=== PATIENT | female | born 1970 | race Two or more races ===

== ENCOUNTER 2021-03-16 07:29 | Outpatient (REF) | payer OTHER, SELFPAY ==
--- NOTE | ~2021-03-16 | MM_ITS ---
EXAMINATION: MM SCREENING DIGITAL BREAST TOMOSYNTHESIS, BILATERAL CLINICAL INFORMATION: Screening. Asymptomatic. The lifetime risk of breast cancer based on the Tyrer-Cuzick Model is 4%. COMPARISON: Mammography: 10/30/2017, 06/08/2015 TECHNIQUE: Digital breast tomosynthesis is performed in both the craniocaudal and mediolateral oblique views along with computer-aided detection (CAD). Synthesized 2D images are generated from the tomosynthesis. FINDINGS: There are scattered areas of fibroglandular density (ACR BI-RADS breast composition Category b). There are no significant masses, abnormal calcifications, or other abnormalities. Parenchymal pattern is similar to prior studies. No significant changes. MM/MM tomosynthesis screening BI IMPRESSION: No mammographic evidence of malignancy. ASSESSMENT: BI-RADS 1: Negative RECOMMENDATION: Routine annual mammography screening. This patient's information was entered into a reminder system with a target due date for their next mammogram.
== END 2021-03-16 07:30 | disposition home or self-care (01) ==
LOC: HO.MAMMO 07:29
PROVIDERS: PCP Nurse Practitioner Family; Visit Provider Nurse Practitioner Family
DX: Z12.31 Encounter for screening mammogram for malignant neoplasm of breast (principal)
CPT/HCPCS: 77063; 77067

== ENCOUNTER 2022-02-14 14:16 | Outpatient (REF) | payer OTHER, SELFPAY ==
--- NOTE | ~2022-02-14 | MR_ITS ---
EXAMINATION: MR BRAIN WITHOUT AND WITH CONTRAST CLINICAL INFORMATION: 51-year-old with chronic daily headaches. COMPARISON: None. TECHNIQUE: Multiplanar, multisequence MRI of the brain was obtained before and after the intravenous administration of 10 mL Gadavist. FINDINGS: BRAIN VOLUME: Grossly unremarkable within the limitations of a qualitative assessment. STRUCTURAL: Partially empty sella. BRAIN AND MENINGES: DWI sequence demonstrates no restricted diffusion to suggest acute or subacute cerebral ischemia. Scattered subcentimeter foci of FLAIR/T2 signal hyperintensity are seen within the white matter of both cerebral hemispheres, right more than left without abnormal enhancement, which are nonspecific findings. The remainder of the brain is normal in morphology and signal intensity. Gradient refocused imaging demonstrates no evidence for hemorrhage, hemosiderin staining or abnormal mineral deposition. No extra-axial fluid collections, mass lesions, space-occupying process or mass effect are identified. No pathologic enhancement. VENTRICLES AND SUBARACHNOID SPACES: The ventricular system and subarachnoid spaces are within normal limits without hydrocephalus. Incidental cavum septum pellucidum noted. ORBITAL STRUCTURES: The visualized orbital structures are grossly unremarkable within the limitations of the study. VASCULAR: Signal voids are noted in the visualized major intracranial vessels. OSSEOUS STRUCTURES, SINUSES/MASTOIDS, EXTRACRANIAL SOFT TISSUES: Unremarkable MR/MR head/brain wo/w con IMPRESSION: 1. Scattered tiny nonenhancing white matter T2 hyperintensities in the cerebral hemispheres, right more than left are nonspecific findings. Differential diagnostic considerations include, but are not limited to, migraine associated vasculopathy and chronic ischemic microangiopathy. 2. No acute intracranial process, space-occupying process, mass effect, hemorrhage or hydrocephalus.
== END 2022-02-14 14:17 | disposition home or self-care (01) ==
LOC: HO.MRI 14:16
PROVIDERS: Visit Provider Psychiatry & Neurology Neurology
DX: R51.9 Headache, unspecified (principal)
CPT/HCPCS: 70553; A9585

== ENCOUNTER 2022-02-26 09:10 | Outpatient (REF) | payer OTHER, SELFPAY ==
[2022-02-26 10:23] LABS: Anion Gap 13 (12-20); Blood Urea Nitrogen 9 mg/dL (9-16); Calcium 9.5 mg/dL (8.4-10.2); Carbon Dioxide 24 mmol/L (22-29); Chloride 104 mmol/L (96-108); Estimated Glomerular Filt Rate > 60; Glucose Random 167 mg/dL (60-115); Potassium 4.1 mmol/L (3.3-5.1); Sodium 137 mmol/L (135-145)
[2022-02-26 10:32] LABS: Erythrocyte Sedimentation Rate 21 MM/HR (0-20)
[2022-02-26 10:54] LABS: Syphilis Screen Nonreactive (Nonreactive)
[2022-02-28 09:27] LABS: Lyme Abs Screen <0.90 index
[2022-02-28 17:27] LABS: IgA 158 mg/dL (47-310); IgG 1234 mg/dL (600-1640); IgM 93 mg/dL (50-300)
[2022-02-28 17:42] LABS: Anti DNA DS Antibody 1 IU/mL
[2022-02-28 18:56] LABS: Anti Nuclear Antibody Screen NEGATIVE (NEGATIVE)
== END 2022-02-26 09:11 | disposition home or self-care (01) ==
LOC: HO.LAB 09:10
PROVIDERS: PCP Nurse Practitioner Family; Visit Provider Psychiatry & Neurology Neurology
DX: G43.909 Migraine, unspecified, not intractable, without status migrainosus (principal); G93.49 Other encephalopathy
CPT/HCPCS: 36415; 80048; 82784; 85652; 86038; 86039; 86225; 86334; 86617; 86618; 86780

== ENCOUNTER 2022-12-10 14:39 | Outpatient (REF) | payer OTHER, SELFPAY ==
--- NOTE | ~2022-12-10 | MM_ITS ---
EXAMINATION: MM SCREENING DIGITAL BREAST TOMOSYNTHESIS, BILATERAL CLINICAL INFORMATION: Screening. Asymptomatic. The lifetime risk of breast cancer based on the Tyrer-Cuzick Model is 8%. COMPARISON: Mammography: 03/16/2021, 10/30/2017 TECHNIQUE: Digital breast tomosynthesis is performed in both the craniocaudal and mediolateral oblique views along with computer-aided detection (CAD). Synthesized 2D images are generated from the tomosynthesis. FINDINGS: There are scattered areas of fibroglandular density (ACR BI-RADS breast composition Category b). There are no significant masses, abnormal calcifications, or other abnormalities. Parenchymal pattern is similar to prior studies. There is no developing density or architectural abnormality. The axilla and skin contours are unremarkable. No significant changes. MM/MM tomosynthesis screening BI IMPRESSION: No mammographic evidence of malignancy. ASSESSMENT: BI-RADS 1: Negative RECOMMENDATION: Routine annual mammography screening. This patient's information was entered into a reminder system with a target due date for their next mammogram.
== END 2022-12-10 14:40 | disposition home or self-care (01) ==
LOC: HO.MAMMO 14:39
PROVIDERS: Visit Provider Nurse Practitioner Adult Health
DX: Z12.31 Encounter for screening mammogram for malignant neoplasm of breast (principal)
CPT/HCPCS: 77063; 77067

== ENCOUNTER 2023-03-27 07:31 | Outpatient (REF) | payer BC, SELFPAY ==
--- NOTE | ~2023-03-27 | MR_ITS ---
EXAMINATION: MRI OF THE BRAIN WITHOUT CONTRAST CLINICAL INFORMATION: Demyelinating changes in the brain. COMPARISON: MRI scan of the brain 02/14/2022. TECHNIQUE: MRI of the brain was obtained using routine sequences without contrast. FINDINGS: The study redemonstrates a few scattered foci of hyperintense T2 and FLAIR signal in the periventricular subcortical white matter which are nonspecific. They may be consistent with sequelae of mild chronic microvascular ischemic change, vasculitis common migraine or demyelination the correct clinical setting. None of the foci demonstrate restricted diffusion. The corpus callosum has good volume. No diffusion abnormalities are identified to suggest an acute or subacute infarct. No mass effect or midline shift is seen. The ventricles and sulci are normal in size. No extra-axial fluid collections are seen. The brainstem and cerebellum are normal. No pathologic magnetic susceptibility artifact is identified on the gradient refocused acquisition. The craniovertebral junction, marrow signal, and midline structures are normal. The major intracranial the mastoid air cells are well-aerated. There is mild mucosal mucoperiosteal in the inferior right maxillary sinus and bilateral ethmoid sinuses. MR/MR head/brain wo con IMPRESSION: 1. There are no acute bleeds or infarcts. No masses are demonstrated. 2. The study redemonstrates multiple small foci of hyperintense T2 and FLAIR signal which appear relatively stable as described above.
== END 2023-03-27 07:32 | disposition home or self-care (01) ==
LOC: HO.MRI 07:31
PROVIDERS: PCP Nurse Practitioner Family; Visit Provider Psychiatry & Neurology Neurology
DX: G37.9 Demyelinating disease of central nervous system, unspecified (principal)
CPT/HCPCS: 70551

== ENCOUNTER 2024-05-08 07:16 | Outpatient (REF) | payer BC, SELFPAY ==
--- NOTE | ~2024-05-08 | MM_ITS ---
EXAMINATION: MM SCREENING DIGITAL BREAST TOMOSYNTHESIS, BILATERAL CLINICAL INFORMATION: Screening. Asymptomatic. COMPARISON: Mammography: Comparison is made with available priors TECHNIQUE: Digital breast mammography with tomosynthesis is performed in both the craniocaudal and mediolateral oblique views along with computer-aided detection (CAD). FINDINGS: There are scattered areas of fibroglandular density (ACR BI-RADS breast composition Category b). There are no significant masses, abnormal calcifications, or other abnormalities. MM/MM tomosynthesis screening BI IMPRESSION: No mammographic evidence of malignancy. ASSESSMENT: BI-RADS BI-RADS 1 - Negative RECOMMENDATION: Routine annual mammography screening. 1 year F/U This examination should not preclude the clinical evaluation of a suspicious palpable abnormality. This patient's information was entered into a reminder system with a target due date for their next mammogram. Electronically signed by: Nohemi Brothers DO 05/19/2024 05:52 PM EDT
== END 2024-05-08 07:17 | disposition home or self-care (01) ==
LOC: HO.MAMMO 07:16
PROVIDERS: PCP Nurse Practitioner Family; Visit Provider Nurse Practitioner Family
DX: Z12.31 Encounter for screening mammogram for malignant neoplasm of breast (principal)
CPT/HCPCS: 77063; 77067

== ENCOUNTER → 2024-05-08 07:30 | Outpatient (BNV) | payer BC, SELFPAY | PROVIDERS: PCP Nurse Practitioner Family; Visit Provider Internal Medicine | DX: Z12.31 Encounter for screening mammogram for malignant neoplasm of breast (principal) | CPT/HCPCS: 77063; 77067 ==

== ENCOUNTER 2025-02-03 07:53 | Outpatient (AMB) | payer BC, SELFPAY ==
--- OUTSIDE RECORDS SUMMARY | 2025-02-03 07:59 | XMS_ITS | Patient Health Record ---
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
--- NOTE | 2025-02-03 08:02 | A.OFFVIS_ITS ---
Vital Signs 02/03/25 08:14 Height 5 ft 4.96 in Weight 210 lb BMI 35.0 BP 112/58 L Blood Pressure Location Rt brachial Position Sitting Pulse 92 Pulse Source Pulse Oximeter Pulse Oximetry (%) 96 Oxygen Delivery Method Room Air Intake Visit Reasons: GERD r/s from 10/26 from us Intake Note: NEW PATIENT for initial eval of GERD. Chronic cond. Taking pantoprazole. Chief Complaint; C.O. GERD persistence + exacerbation, N+V, dysphagia. Pt reports that she has been taking pantoprazole 20 mg which was previously effective but has not been as effective lately. Pt also comments that she sometimes will take 40 mg of the PPI without any noticeable difference. Weight Reducing Technician Required: No Accompanied by: Self / Same As Patient Allergies No Known Allergies (No Known Allergies*) Allergy (Unverified 02/03/25 08:02) HPI HPI GERD r/s from 10/26 from us: Details: 54-year-old female with past medical history of diabetes, hypothyroidism, Graves disease, hypertension, dyslipidemia, asthma, arthritis, chronic GERD, hiatal hernia, fibromyalgia is here today for initial consultation. Patient reports acid reflux for allowing time last endoscopy was in 2015. Patient has been prescribed pantoprazole 20 mg, however she reports that 20 mg has not been helpful. Patient has been taking 40 mg and reports that sometimes she still will have acid reflux. Reports that the food feels like it gets kind of stuck in the middle of her esophagus where she needs to regurgitate some of the food sometimes. Patient reports sometimes getting up in the morning feeling nauseous burning sensation in her stomach. Burning sensation with or without food. Feeling fullness. Patient was on Ozempic and that was stopped and she is currently on Mounjaro. When on Ozempic symptoms were worse. Patient reports that she gets bloated after meals. Sometimes no matter what she eats. Patient reports that she is having trouble emptying her bowels. However she reports that when she is taking magnesium at bedtime she will empty her bowels better. Patient denies melena, hematochezia, unintentional weight loss or ribbon like stools. Last colonoscopy 2 years ago when she turned 52 years old. Family history of CRC. Her father was diagnosed with colon cancer and patient had tubular adenoma on her last colonoscopy. This was done at [facility]. Will get report [facility] Medical History Vitamin D deficiency Type 2 diabetes mellitus Morbid obesity Palpitations Hypothyroid HTN (hypertension) Hiatal hernia Graves disease Fibromyalgia Dyslipidemia Chronic GERD Asthma Arthritis Review of Systems Const Denies weight gain and Denies weight loss ENT Reports no additional complaints, Reports dysphagia and Denies odynophagia Card Reports no additional complaints Resp Reports no additional complaints GI Reports abdominal pain (Epigastric), Denies belching, Denies melena, Reports bloating, Denies change in bowel habits, Reports dysphagia, Denies excessive flatus, Reports dyspepsia, Reports heartburn, Denies diarrhea, Denies loose stools, Reports nausea, Denies odynophagia and Denies vomiting Reports no additional complaints Musc Reports no additional complaints Neuro Reports no additional complaints Psych Reports no additional complaints Endo Reports no additional complaints Physical Exam Vital Signs: Last Vital Signs Pulse 92 02/03/25 08:14 BP 112/58 L 02/03/25 08:14 Pulse Ox 96 02/03/25 08:14 Oxygen Delivery Method Room Air 02/03/25 08:14 BMI result Body Mass Index 35.0 Const General: healthy appearing, no acute distress and well developed Nutritional Appearance: well nourished and overweight Orientation/consciousness: patient oriented x3 Resp Effort & Inspection: normal respiratory effort, able to speak in complete sentences, no tracheal deviation and symmetric chest movement Auscultation: clear to auscultation bilaterally Cardio Jugular venous distension: no JVD Rate: regular rate Heart sounds: S1 normal heart sound present, S2 normal heart sound present, no gallops and no murmurs GI Inspection: Yes normal to inspection, No distended and Yes obesity Palpation (GI): Soft to palpation, not firm, nontender and No hepatosplenomegaly present Auscultation: normal bowel sounds General: Yes no CVA tenderness Back/Spine/Pelvis Back: no CVA tenderness Skin General skin exam: elasticity normal, turgor normal and dry skin Neuro General: patient oriented x3 Psych Appearance: grossly normal Mental Status: mental status grossly normal Assessment & Plan Assessment & Plan (1) GERD (gastroesophageal reflux disease): Code(s): K21.9 - Gastro-esophageal reflux disease without esophagitis Qualifiers: Esophagitis presence: esophagitis presence not specified Qualified Code(s): K21.9 - Gastro-esophageal reflux disease without esophagitis (2) Dysphagia: Code(s): R13.10 - Dysphagia, unspecified Qualifiers: Dysphagia type: pharyngoesophageal phase Qualified Code(s): R13.14 - Dysphagia, pharyngoesophageal phase (3) Nausea & vomiting: Code(s): R11.2 - Nausea with vomiting, unspecified Qualifiers: Vomiting type: unspecified Qualified Code(s): R11.2 - Nausea with vomiting, unspecified (4) Postprandial abdominal bloating: Code(s): R14.0 - Abdominal distension (gaseous) Plan Will start patient on esomeprazole in the morning and famotidine at bedtime. Will send for upper GI with barium swallow. Patient reports dysphagia, rule out achalasia, Schatzki ring, esophageal stricture. Patient reports epigastric pain will rule out H pylori. Patient reports occasional constipation will continue to take magnesium every evening if it helps. Increase fluid intake and activity to promote better bowel motility. Return in 4 months, sooner on as needed basis. Patient is agreeable to this plan and verbalizes understanding of instructions. She was given the opportunity to ask questions and all questions answered. Thank you for allowing me to participate in her care Orders: Orders FL upper GI w Ba Swallow Today K21.9 - Gastro-esophageal reflux disease without esophagitis H pylori Ag Stool Today K21.9 - Gastro-esophageal reflux disease without esophagitis Hemoglobin A1c Today Z83.3 - Family history of diabetes mellitus Vitamin B12 and Folate Today R19.7 - Diarrhea, unspecified Vitamin D 25-OH (D2 and D3) Today E55.9 - Vitamin D deficiency, unspecified Medications: New esomeprazole magnesium (Nexium) 40 mg PO DAILY 30 caps 3RF K21.9 - Gastro- esophageal reflux disease without esophagitis famotidine (Pepcid) 20 mg PO BEDTIME 30 tabs 3RF K21.9 - Gastro-esophageal reflux disease without esophagitis Coding Level of Care Code New Pt Level 4 (99099) Diagnoses Gastroesophageal reflux disease, unspecified whether esophagitis present K21.9 Esophagitis presence: esophagitis presence not specified Pharyngoesophageal dysphagia R13.14 Dysphagia type: pharyngoesophageal phase Nausea and vomiting, unspecified vomiting type R11.2 Vomiting type: unspecified Postprandial abdominal bloating R14.0 Time Spent (min) 45 Comment 30 minutes spent with patient and additional 15 minutes spent reviewing her records
[2025-02-03 08:14] VITALS: BP 112/58; PULSE 92; O2SAT 96; BMI 35.0
== END 2025-02-03 08:28 | disposition home or self-care (01) ==
PROVIDERS: PCP Nurse Practitioner Family; Visit Provider Nurse Practitioner Family
DX: K21.9 Gastro-esophageal reflux disease without esophagitis (principal); R13.14 Dysphagia, pharyngoesophageal phase; R11.2 Nausea with vomiting, unspecified; R14.0 Abdominal distension (gaseous)
CPT/HCPCS: 99204

== ENCOUNTER 2025-02-03 07:53 | Outpatient (REF) | payer BC, SELFPAY ==
[2025-02-03 09:18] LABS: Estimated Average Glucose 131 mg/dL; Hemoglobin A1c % 6.2 % (<6.0)
[2025-02-03 10:26] LABS: Vitamin B12 619 pg/mL (200-900)
[2025-02-09 15:09] LABS: Vitamin D 25-OH, D2 <4 ng/mL; Vitamin D 25-OH, D3 32 ng/mL; Vitamin D 25-OH, Total 32 ng/mL (30-100)
== END 2025-02-03 07:54 | disposition home or self-care (01) ==
LOC: HO.LAB 07:53
PROVIDERS: PCP Nurse Practitioner Family; Visit Provider Nurse Practitioner Family
DX: R19.7 Diarrhea, unspecified (principal); Z83.3 Family history of diabetes mellitus; E55.9 Vitamin D deficiency, unspecified; Z13.1 Encounter for screening for diabetes mellitus
CPT/HCPCS: 36415; 82306; 82607; 82746; 83036

== ENCOUNTER 2025-02-04 16:16 | Outpatient (REF) | payer BC, SELFPAY ==
--- OUTSIDE RECORDS SUMMARY | 2025-02-04 19:43 | XMS_ITS | Data Portability ---
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 We had the following discussion at length back in February 2022 which she has little memory of. Today we discussed the pathophysiology of migraine and migraine associated phenomena such as dizziness and visual aura. We discussed how the patient's balance disturbance symptoms are likely mediated by a central processing abnormality rather than an isolated inner ear abnormality. Audiometric testing today showed mild high-frequency sensorineural hearing loss consistent with presbycusis. Overall no audiometric changes that would be consistent with M ni re's disease. In addition, testing for BPPV today was negative. I gave the patient a significant amount of literature to review at home regarding how there are many environmental and dietary triggers that can lead to not only migraine headaches but balance disturbance symptoms as well. We spent a lot of time discussing the importance of following a migraine diet. We have offered the patient a copy of the Heal Your Headache book to read at home, which gives a [id number] discussion on what causes migraine and how to make the necessary lifestyle and dietary changes to significantly reduce or eliminate migraine symptoms. I have also recommended the use of dietary supplements magnesium, vitamin B2 and feverfew which have been shown to help control migrainous phenomena. We discussed dosage and schedule for these supplements. We discussed alternative of using Migranol, which contains a combination of magnesium, vitamin B2, and feverfew. I have recommended she continue to work with her neurology team with regards to further treatments available for chronic uncontrolled migraine. Hopefully If she is able to follow the above-mentioned recommendations, she will have significant reduction in her symptoms. We did discuss that there are other pharmacologic options available for treatment of chronic migraine which is best done by a neurologist. We did discuss the fact that her daily use of lorazepam may be habituating and that she should speak with the prescribing physician about weaning her off of this medication. If there are further concerns about her poor sleep and how it affects her symptoms, a sleep study may be warranted, as untreated sleep apnea can be a significant trigger for migraine phenomena. [email or web address] Not available 06/04/2024 16:01:00 Plan of Treatment Reminders Order Date Submit Date Provider Last Modified By Organization Details Last Modified Time Details Appointments None record ed. Lab None record ed. Referral None record ed. Procedures None record ed. Surgeries None record ed. Imaging None record ed. Medication Orders None record ed. Patient TargetsNo targets recorded. Patient InstructionsNo instructions recorded. Reason for Referral None Reported. Results Created Date Observation Date Name Description Value Unit Range Abnormal Flag Note LastModifiedBy Organization Detail LastModifiedTime 06/05/20 audio gram No observ ation record ed. [email or web address] Not Available 05/13 11:41:25 Result Notes None recorded. Problems Name Problem SNOMED Code Status Onset Date Resolution Date Notes Provider Name and Address Organization Details Recorded Time Refracto ry migraine 328294274 Active 2021 Other migraine , intracta ble, without status migraino joe; Note: Date Diagnose d: 2 2:41 PM (G43.819 ) Not Available [facility] 4 02:18:29 Benign paroxysm al position al vertigo 149230201 Completed 202103/13/2024 Benign paroxysm al vertigo, unspecif ied ear; Note: Date Diagnose d: 2 2:43 PM (H81.10) Not Available [facility] 4 02:18:53 Vertigo of central origin 41503161 Active 2021 Vertigo of central origin; Note: Date Diagnose d: 2 2:41 PM (H81.4) Not Available [facility] 4 02:19:11 Sensorin eural hearing loss of bilatera l ears 704231677 Active 2021 Sensorin eural hearing loss, bilatera l; Note: Date Diagnose d: 2 2:42 PM (H90.3) Not Available [facility] 4 02:18:19 Snoring 31170052 Active 2023 JENNY MORNEO MD [address] [place] [address],[place] [address], [facility] [place], [address] , [facility] 16:01:05 Obesity 074347525 Active 2023 JENNY MORENO MD [address] [place] [address],[place] [address], [facility] [place], [address] , [facility] 4 16:01:10 Type 2 diabetes mellitus 15542869 Active 2023 JENNY MORENO MD [address] [place] [address],[place] [address], [place], [address] , [facility] 16:03:27 Problem Notes None recorded. Procedures Surgical History Date Name Laterality Status Provider Name and Address Organization Details Recorded Time 06/04/2024 Comp Audio with Tymps - 27325 & 02779 completed NGOC REDDY MA, CCC-A [address] [place] [address],[place] [address], [place], [address], [facility] 06/04/2024 15:16:55 Imaging Results None recorded. Procedure Notes None recorded. Medical Equipment None Reported. Allergies No known drug allergies Medications Name Sig Start Date Stop Date Status Note LastModified by Organization Details LastModified Time cyclobenz aprine 10 mg tablet 06/04 completed Medicati on ID: [id number] B rand Name: luis moon Send Method: E-Prescr ibed Sub s Allowed: subs OK Medic ationGen ericName : cycloben zaprine Not Available Not Available Not Available atorvasta tin 20 mg tablet TAKE 1 TABLET BY MOUTH EVERY DAY active Not Available Not Available No t Available loperamid e 2 mg capsule TAKE 1 CAPSULE BY MOUTH EVERY 6-8 HOURS FOR DIARRHEA 06/04 completed Not Available Not Available Not Available benzonata te 200 mg capsule TAKE 1 CAPSULE BY MOUTH THREE TIMES A DAY NEEDED FOR 7 DAYS FOR COUGH 06/04 completed Not Available Not Available Not Available sumatript an 25 mg tablet PLEASE SEE ATTACHED FOR DETAILED DIRECTIO NS active Not Available Not Available No t Available ondansetr on HCl 4 mg tablet TAKE 1 TABLET BY MOUTH EVERY 8 HOURS active Not Available Not Available No t Available pantopraz ole 20 mg tablet,de layed release TAKE 1 TABLET BY MOUTH EVERY DAY active Not Available Not Available No t Available propranol ol 10 mg tablet 10 mg as needed by oral route. 2023 active Not Available Not Available Not Avai lable amitripty line 25 mg tablet TAKE 1 TABLET BY MOUTH EVERYDAY AT BEDTIME 06/04 completed Not Available Not Available Not Available lorazepam 0.5 mg tablet TAKE 1 TABLET BY MOUTH EVERY DAY active Not Available Not Available No t Available meclizine 25 mg tablet 06/04 completed Medicati on ID: [id number] B rand Name: meclizin e Send Method: E-Prescr ibed Sub s Allowed: subs OK Medic ationGen ericName : meclizin e Not Available Not Available Not Available pantopraz ole 40 mg tablet,de layed release active Medicati on ID: [id number] B rand Name: pantopra zole Sen d Method: E-Prescr ibed Sub s Allowed: subs OK Medic ationGen ericName : pantopra zole Not Available Not Available Not Available losartan 25 mg tablet 06/04 completed Medicati on ID: [id number] B rand Name: losartan Send Method: E-Prescr ibed Sub s Allowed: subs OK Medic ationGen ericName : losartan Not Available Not Available Not Available levothyro xine 200 mcg tablet TAKE 1 TABLET BY MOUTH EVERY DAY active Not Available Not Available No t Available scopolami ne 1 mg over 3 days transderm al patch APPLY 1 PATCH TOPICALL Y EVERY 72 HOURS,X1 4 DAYS 06/04 completed Not Available Not Available Not Available albuterol sulfate HFA 90 mcg/actua tion aerosol inhaler 2 PUFFS INHALATI ON EVERY 6 HOURS NEEDED FOR WHEEZING /SHORTNE SS OF BREATH 06/04 completed Not Available Not Available Not Available ondansetr on 4 mg disintegr ating tablet ALLOW 1 TABLET TO DISSOLVE BY MOUTH EVERY 8 HOURS NEEDED FOR NAUSEA 06/04 completed Not Available Not Available Not Available metformin ER 500 mg tablet,ex tended release 24 hr 06/04 completed Medicati on ID: [id number] B rand Name: metformi n Send Method: E-Prescr ibed Sub s Allowed: subs OK Medic ationGen ericName : metformi n Not Available Not Available Not Available naproxen 500 mg tablet 06/04 completed Medicati on ID: [id number] B rand Name: naproxen Send Method: E-Prescr ibed Sub s Allowed: subs OK Medic ationGen ericName : naproxen Not Available Not Available Not Available metoprolo l tartrate 25 mg tablet TAKE 1/2 TABLET BY MOUTH TWICE A DAY 06/04 completed Not Available Not Available Not Available topiramat e 50 mg tablet 06/04 completed Medicati on ID: [id number] B rand Name: topirama te Send Method: E-Prescr ibed Sub s Allowed: subs OK Medic ationGen ericName : topirama te Not Available Not Available Not Available duloxetin e 30 mg capsule,d elayed release TAKE 1 CAPSULE BY MOUTH EVERY DAY active Not Available Not Available No t Available Ozempic 0.25 mg or 0.5 mg (2 mg/1.5 mL) subcutane ous pen injector 0.5 mg every week by sub-q route. 2022 active Not Available Not Available Not Avai lable semagluti de (weight loss) 0.5 mg/0.5 mL subcutane ous pen injector Inject by subcutan eous route. active Not Available Not Available No t Available Ozempic 0.25 mg or 0.5 mg (2 mg/3 mL) subcutane ous pen injector INJECT 0.5 MG SUBCUTAN EOUSLY EVERY 7 DAYS 06/04 completed Not Available Not Available Not Available Vitals Date Recorded Body height Body mass index (BMI) Body weight Provider Name and Address Organization Details Last Updated DateTime 06/04/2024 165.1 cm 35.1 kg/m2 05205.99 g Celeste Osuna [place] - [facility] 06/04/2024 14:50:24 Social History None recorded. Functional Status None recorded. Mental Status None recorded. Family History Nothing Reported. Medical History Condition Response Diabetes Y Allergies/Hayfever Y Anxiety Y GERD/Reflux Y High Cholesterol Y Fibromyalgia Y Migraines Y Thyroid Problems Y Hypertension Y Gynecological HistoryNo gynecological history recorded. Obstetrics History GPAL:G 0 P 0 0 0 0 Past Encounters Encounter ID Performer Location Encounter Start Date Encounter Closed Date Diagnosis/Indication Diagnosis SNOMED-CT Code Diagnosis ICD10 Code Diagnosis Note [id number] JENNY MORENO MD [facility] [address] [address] 06/04/2024 14:17:14 06/04/2024 15:09:28 Refractory migraine 182829779 G43.819 Vertigo of central origin 14081270 H81.4 Sensorineu ral hearing loss of bilateral ears 652646589 H90.3 Audiologic al evaluation results: Right ear: Normal hearing with a mild SNHL at 2, 3, and 8kHz with excellent word recognitio n. Left ear: Normal hearing with mild SNHL at 2 & 3 kHz with excellent word recognitio n. Tympanomet ry: Right Ear:Type A Left Ear:Type A Snoring 06456956 R06.83 Obesity 720087140 E66.9 Type 2 kathrin betes mellitus 08484650 E11.9 Health Concerns Section Related Observation LastModified by Organization Detai ls LastModified Time None Recorded Concern Status LastModified by Organization Details LastModified Time None Recorded Advance Directives Directive None Recorded Payers Insurance Date Sequence Insurance Name Policy Number Policy Banks Covered Member ID Banks Member ID Guarantor Name 06/04/2024 1 LUIS E ([facility]) [id number] Eliana Rendon [id number] Eliana Rendon 06/10/2024 [facility] [id number] Eliana Rendon [id number] Eliana Rendon Notes Date Note Type Note Provider Name and Address Organization Details Recorded Time 06/04/2024 text/html 51-year-old anil lew sent for evaluation of balance disturbance. I saw this patient back in February 2022 at which point the following history was recorded: Back in July she had two days of positionally induced vertigo, lasting 15 to 30 seconds usually brought on by rolling over in bed. This recurred in December. She was sent for vestibular therapy and underwent Obey maneuvers through [facility] physical therapy. This succeeded in eliminating the positionally induced vertigo. Unfortunate, she continues to have a chronic fogginess sensation, chronic lightheadedness, motion intolerance. She has chronic daily headache every single day, accompanied by phonophobia, photophobia. She saw Dr. Topete in neurology at [place] who sent her for MRI scan which did show some white matter changes consistent with migraine. He started her on Topamax which made her feel weird , so she stopped this medication but has been instructed to restart it. She has more evoked potential testing ordered. She's noticed no significant changes in her hearing. No tinnitus. Currently not having any true vertigo. At that visit, I felt that her symptoms were consistent with a combination of BPPV and vestibular migraine. The migraine literature was provided to help her to identify and eliminate triggers for symptoms. I recommended she continue to follow-up with her neurologist Dr. Topete. Patient has recently followed up with the [facility] neurology group. She continues to have a sensation of feeling off balance without spinning. She continues to get chronic headaches daily. She was prescribed sumatriptan 25 mg as needed as well as Zofran. Patient does report that she sleeps poorly. She has been on lorazepam for some time now. Her attempts at stopping the lorazepam makes her feel worse. Patient does snore occasionally at night, but does not sound like it is severe enough to be concerning for obstructive sleep apnea. She has been recently diagnosed with diabetes and is on Ozempic for weight loss. JENNY MORENO MD [address] [place] [address], [phone], [facility] - [facility] 06/04/2024 16:03:58 OBGyn Episode No OBEpisode recorded.
== END 2025-02-04 16:17 | disposition home or self-care (01) ==
LOC: HO.LNP 16:16
PROVIDERS: Visit Provider Nurse Practitioner Family
DX: Z13.89 Encounter for screening for other disorder (principal)

== ENCOUNTER → 2025-05-11 07:45 | Outpatient (BNV) | payer BC, SELFPAY | PROVIDERS: PCP Nurse Practitioner Family; Visit Provider Radiology Body Imaging | DX: Z12.31 Encounter for screening mammogram for malignant neoplasm of breast (principal) | CPT/HCPCS: 77063; 77067 ==

== ENCOUNTER 2025-05-11 07:48 | Outpatient (REF) | payer BC, SELFPAY ==
--- NOTE | ~2025-05-11 | MM_ITS ---
EXAMINATION: MM SCREENING DIGITAL BREAST TOMOSYNTHESIS, BILATERAL CLINICAL INFORMATION: Screening. Asymptomatic. COMPARISON: Comparison made to multiple prior, most recent May 08, 2024, and most remote June 25, 2012. TECHNIQUE: Digital breast tomosynthesis is performed in mediolateral oblique and craniocaudal views along with computer-aided detection (CAD). Synthesized 2D images are generated from the tomosynthesis. FINDINGS: BREAST COMPOSITION: There are scattered areas of fibroglandular density. BILATERAL BREASTS: No significant masses, suspicious calcifications or other abnormalities are seen in either breast. MM/MM tomosynthesis screening BI IMPRESSION: BILATERAL BREASTS: Negative, no mammographic evidence of malignancy. Normal interval follow-up is recommended in 12 months. ASSESSMENT: BI-RADS: Category 1: Negative RECOMMENDATION: Routine annual mammography screening. FOLLOW-UP: 1 year F/U This examination should not preclude the clinical evaluation of a suspicious palpable abnormality. This patient's information was entered into a reminder system with a target due date for their next mammogram. Electronically signed by: Luis F Armstrong MD 05/11/2025 08:12 PM EDT
--- OUTSIDE RECORDS SUMMARY | 2025-05-11 07:57 | XMS_ITS | Data Portability ---
Author Organization [place] - [facility], Allergy Address [address] [address] Care Team Providers Care Card Lacer Name Role Phone FRANCISCO J OCHOA Primary Care Provider FRANCISCO J OCHOA Referring Provider [phone] Assessment Encounter Date Assessment Date Assessment LastModified [...] to read at home, which gives a hurk-bo-klir discussion on what causes migraine and how [...] be a significant trigger for migraine phenomena. [email or web address] Not available 06/04/2024 16:01:00 Plan of Treatment [...] audio gram No observ ation record ed. [email or web address] Not Available 05/13 11:41:25 Result Notes None recorded. Problems Name Problem SNOMED Code Status Onset Date Resolution Date Notes Provider Name and Address Organization Details Recorded Time Refracto ry migraine 478678758 Active 2021 Other migraine , intracta ble, without status migraino joe; Note: Date Diagnose d: 2 2:41 PM (G43.819 ) Not Available [facility] 4 02:18:29 Benign paroxysm al position al vertigo 252852756 Completed 202103/13/2024 Benign paroxysm al vertigo, unspecif ied ear; Note: Date Diagnose d: 2 2:43 PM (H81.10) Not Available [facility] 4 02:18:53 Vertigo of central origin 90291828 Active 2021 Vertigo of central origin; Note: Date Diagnose d: 2 2:41 PM (H81.4) Not Available [facility] 4 02:19:11 Sensorin eural hearing loss of bilatera l ears 183492837 Active 2021 Sensorin eural hearing loss, bilatera l; Note: Date Diagnose d: 2 2:42 PM (H90.3) Not Available [facility] 4 02:18:19 Snoring 31534421 Active 2023 JENNY MORENO MD [address] [place] [address],[place] [address], [place], [phone] , [facility] 16:01:05 Obesity 170659182 Active 2023 JENNY MORENO MD [address] [place] [address],[place] [address], [place], [phone] , [facility] 4 16:01:10 Type 2 diabetes mellitus 58126324 Active 2023 JENNY MORENO MD [address] [place] [address],[place] [address], [place], [address] , [facility] 16:03:27 Problem Notes None recorded. Procedures Surgical History Date Name Laterality Status Provider Name and Address Organization Details Recorded Time 06/04/2024 Comp Audio with Tymps - 05080 & 55481 completed NGOC REDDY MA, CCC-A [address] [place] [address],[place] [address], [place], [address], [facility] 06/04/2024 15:16:55 Imaging Results None recorded. Procedure Notes None recorded. Medical Equipment None Reported. Allergies No known drug allergies Medications Name Sig Start Date Stop Date Status Note LastModified by Organization Details LastModified Time cyclobenz aprine 10 mg tablet 06/04 completed Medicati on ID: [id number] B rand Name: luis moon Send Method: [...] mg tablet 06/04 completed Medicati on ID: [id number] B rand Name: meclizin e Send Method: E-Prescr ibed Sub s Allowed: subs OK Medic ationGen ericName : meclizin e Not Available Not Available Not Available pantopraz ole 40 mg tablet,de layed release active Medicati on ID: 705865 B rand Name: pantopra zole Sen d Method: E-Prescr ibed Sub s Allowed: subs OK Medic ationGen ericName : pantopra zole Not Available Not Available Not Available losartan 25 mg tablet 06/04 completed Medicati on ID: [id number] B rand Name: losartan Send Method: E-Prescr [...] 24 hr 06/04 completed Medicati on ID: [id number] B rand Name: metformi n Send Method: E-Prescr ibed Sub s Allowed: subs OK Medic ationGen ericName : metformi n Not Available Not Available Not Available naproxen 500 mg tablet 06/04 completed Medicati on ID: [id number] B rand Name: naproxen Send Method: E-Prescr ibed Sub s Allowed: subs OK Medic ationGen ericName : naproxen Not Available Not Available Not Available metoprolo l tartrate 25 mg tablet TAKE 1/2 TABLET BY MOUTH TWICE A DAY 06/04 completed Not Available Not Available Not Available topiramat e 50 mg tablet 06/04 completed Medicati on ID: [id number] B rand Name: topirama te Send Method: [...] Updated DateTime 06/04/2024 165.1 cm 35.1 kg/m2 67293.99 g Celeste Osuna [place] - [facility] 06/04/2024 14:50:24 Social History None recorded. Functional Status None recorded. Mental Status None recorded. Family History Nothing Reported. Medical History Condition Response Allergies/Hayfever Y Diabetes Y Anxiety Y High Cholesterol Y GERD/Reflux Y Migraines Y Fibromyalgia Y Thyroid Problems Y Hypertension Y Gynecological HistoryNo gynecological history recorded. Obstetrics History GPAL:G 0 P 0 0 0 0 Past Encounters Encounter ID Performer Location Encounter Start Date Encounter Closed Date Diagnosis/Indication Diagnosis SNOMED-CT Code Diagnosis ICD10 Code Diagnosis IMO Codes Diagnosis Note [id number] JENNY MORENO MD [facility] [address] [address] 06/04/2024 14:17:14 06/04/2024 15:09:28 Refractory migraine 151374714 G43.819 Vertigo of central origin 55099045 H81.4 Sensorineu ral hearing loss of bilateral ears 580193943 H90.3 Audiologic al evaluation results: Right ear: Normal hearing with a mild SNHL at 2, 3, and 8kHz with excellent word recognitio n. Left ear: Normal hearing with mild SNHL at 2 & 3 kHz with excellent word recognitio n. Tympanomet ry: Right Ear:Type A Left Ear:Type A Snoring 62030323 R06.83 Obesity 204027762 E66.9 Type 2 kathrin betes mellitus 80882076 E11.9 Health Concerns Section Related Observation LastModified by Organization Detai ls LastModified Time None Recorded Concern Status LastModified by Organization Details LastModified Time None Recorded Advance Directives Directive None Recorded Payers Insurance Date Sequence Insurance Name Policy Number Policy Banks Covered Member ID Banks Member ID Guarantor Name 06/04/2024 1 KAVEHMD (O) [id number] Eliana Rendon [id number] Eliana Rendon 06/10/2024 1 KAVEHMA: [facility] [id number] Eliana Rendon [id number] Eliana Rendon Notes Date Note Type Note Provider Name and Address Organization Details Recorded Time 06/04/2024 text/html 51-year-old female sent for evaluation of balance disturbance. I saw this patient back in February 2022 at which point the following history was recorded: Back in July she had two days of positionally induced vertigo, lasting 15 to 30 seconds usually brought on by rolling over in bed. This recurred in December. She was sent for vestibular therapy and underwent Obey maneuvers through [facility] physical therapy. This succeeded in eliminating the positionally induced vertigo. Unfortunate, she continues to have a chronic fogginess sensation, chronic lightheadedness, motion intolerance. She has chronic daily headache every single day, accompanied by phonophobia, photophobia. She saw Dr. Topete in neurology at [place] who sent her for MRI scan which [...] Patient has recently followed up with the [facility] neurology group. She continues to have [...] Ozempic for weight loss. JENNY MORENO MD [address] [place] [address], [phone], [facility] - [facility] 06/04/2024 16:03:58 OBGyn Episode No OBEpisode recorded.
--- OUTSIDE RECORDS SUMMARY | 2025-05-11 07:57 | XMS_ITS | Clinical Summary ---
Author Organization [facility] it Address [address] [place] [address] Care Team Providers Care Maintenance And Custodian Supervisor Name Role Phone Unavailable Primary Care Provider Unavailabl e Social History Tobacco Use Types Packs/Day Years Used Date Smoking Tobacco: Never Assessed Comments Unknown Sex and Gender Information Value Date Recorded Sex Assigned at Not on file Legal Sex Female 1:37 PM EDT Gender Identity Not on file Sexual Orientation Not on file Plan of Treatment Health Maintenance Due Date Last Done Comments Breast Cancer Screening 1972 Diabetes: Annual GFR (Glomerular Filtration Rate) 1972 Diabetes: Annual Foot Exam 1982 Diabetes: Annual Retina Eye Exam 1982 Hepatitis B Vaccines (1 of 3 - 19+ 3-dose series) 11/02/1991 Cervical Cancer Screening: Pap Smear 1993 Zoster Vaccines (1 of 2) 2022 Cholesterol Screening (Lipid Panel) 03/04/2024 Colorectal Cancer Screening: Colonoscopy 03/04/2024 HIV Screening 03/04/2024 Hepatitis C Screening 03/04/2024 Social Influencers of Health Screening 03/04/2024 Depression Screening 08/12/2024 Diabetes: Annual Urine Albumin-Creatinine Ratio (uACR) 02/04/2025 Diabetes: Blood Sugar Control Test (HGBA1C) 02/04/2025 Hypertension/CHF/CAD Annual BMP Blood Test 02/04/2025 COVID-19 Vaccine ( season) 2025 12/03/2020, 11/05/2020, 10/10/2020 Influenza Vaccine (#1) 2025 , 06/03/2022, 06/16/2021, Additional history exists DTaP,Tdap,and Td Vaccines (2 - Td or Tdap) 03/15/2033 03/15/2023 Pneumococcal Vaccine: 50+ Years Completed 03/15/2023 HIB Vaccines Aged Out No longer eligi ble based on patient's age to complete this topic HPV Vaccines Aged Out No longer eligi ble based on patient's age to complete this topic Hepatitis A Vaccines Aged Out No long er eligible based on patient's age to complete this topic IPV Vaccines Aged Out No longer eligi ble based on patient's age to complete this topic MMR Vaccines Aged Out No longer eligi ble based on patient's age to complete this topic Meningococcal ACWY Vaccine Aged Out N o longer eligible based on patient's age to complete this topic Meningococcal B Vaccine Aged Out No l onger eligible based on patient's age to complete this topic RSV Immunization Patients Under 20 months Aged Out No longer eligible based on patient's age to complete this topic Varicella Vaccines Aged Out No longer eligible based on patient's age to complete this topic
--- OUTSIDE RECORDS SUMMARY | 2025-05-11 07:57 | XMS_ITS | Patient Health Record ---
Author Organization [facility] Address [address] [place] [address] Care Team Providers Care Space Physicist Name Role Phone Rachell Kendall Unavailable [phone] Reason For Referral No Information Plan Of Treatment No Information
--- OUTSIDE RECORDS SUMMARY | 2025-05-11 07:57 | XMS_ITS | Patient Health Record ---
Author Organization [facility] Address [address] [place] [address] Care Team Providers Care Tongsman Name Role Phone Nathaniel Johnson MD Primary Care Provider Fahad Tan Unavailable [phone] Reason For Referral No Information Medications Medication SIG (Take, Route, Fr equency, Duration) Notes Start Date End Date Status zzzNightsplint AFO . . Wear As directed; Duration: as needed 07/13/2015 Unknown Advair HFA Unknown Levoxyl 300 1 tablet Orally Once a day Unknown Problems No Known Problems Plan Of Treatment No Information Insurance Providers Payer Name Payer Address Payer Phone Subscriber Number Group Number Insured Name Patient Relationship to Insured Coverage Start Date Coverage End Date [facility] [address] [place] [address] [id number] Diony Rendon Spouse - patient is the spouse of the insured Medical (General) History Medical History History ICD Code asthma Hiatal hernia Sickle cell trait Thyroid disorder Chicken pox
== END 2025-05-11 07:49 | disposition home or self-care (01) ==
LOC: HO.MAMMO 07:48
PROVIDERS: PCP Nurse Practitioner Family; Visit Provider Nurse Practitioner Family
DX: Z12.31 Encounter for screening mammogram for malignant neoplasm of breast (principal)
CPT/HCPCS: 77063; 77067

== ENCOUNTER 2025-05-31 08:24 | Outpatient (REF) | payer BC, SELFPAY ==
--- NOTE | ~2025-05-31 | FL_ITS ---
EXAMINATION: XR UPPER GI SERIES WITH barium swallow CLINICAL INFORMATION: Retrosternal chest pain. History of esophagitis and reflux. COMPARISON: None available. TECHNIQUE: Routine upper GI air contrast study in upright and lying. Barium swallow with saltine crackers was performed in upright view. FINDINGS: Following oral administration of thick barium and effervescent granules is normal propagation bolus from the oral cavity through the pharynx, esophagus into stomach without obstruction, narrowing or stricture. There is no intraluminal filling defect or narrowing. No extra-axial compression seen. On oral administration of saltine crackers coated with barium paste there is normal oral mastication and propagation of solid bolus from the oral cavity through the pharynx, esophagus into stomach. No obstruction seen. On placing patient supine and prone lying the course, peristalsis of the stomach, duodenal bulb and esophagus is normal. The mucosal pattern of the stomach, duodenum and esophagus is normal. There are increased gastric secretions in the stomach. No gastroesophageal reflux or hiatal hernia was visualized FLUOROSCOPY TIME: 2 minutes and 8 seconds DOSE AREA PRODUCT: 64.02 uGy-m2 (microgray-meter squared) FL/[place] upper GI w air w Ba Swallow IMPRESSION: Crees gastric secretions. No gastroesophageal reflux or hiatal hernia seen. The esophagus is unremarkable. Electronically signed by: Eddie Pulido MD 05/31/2025 09:45 AM EDT
--- OUTSIDE RECORDS SUMMARY | 2025-05-31 08:46 | XMS_ITS | Patient Health Record ---
Author Organization [facility] Address [address] [place] [address] Care Team Providers Care Kiln Operator Name Role Phone Kendall Lovett Unavailable [phone] Reason For Referral No Information Plan Of Treatment No Information
--- OUTSIDE RECORDS SUMMARY | 2025-05-31 08:47 | XMS_ITS | Patient Health Record ---
Author Organization [facility] Address [address] [place] [address] Care Team Providers Care Elementary Librarian Name Role Phone Nathaniel Johnson MD Primary Care Provider Fahad Tan Unavailable [phone] Reason For Referral No Information Medications Medication [...] Insured Coverage Start Date Coverage End Date [facility] [address] [place] [address] [id number] Diony Rendon Spouse - patient is the spouse of the insured Medical (General) History Medical History History ICD Code asthma Hiatal hernia Sickle cell trait Thyroid disorder Chicken pox
--- OUTSIDE RECORDS SUMMARY | 2025-05-31 08:47 | XMS_ITS | Clinical Summary ---
Author Organization [facility] ity Address [address] [place] [address] Care Team Providers Care Felt Strip Finisher Name Role Phone Unavailable Primary Care Provider [...] Last Done Comments Breast Cancer Screening 1972 Colorectal Cancer Screening: Colonoscopy 1972 Diabetes: Annual GFR (Glomerular Filtration Rate) 1972 Diabetes: Annual Foot Exam 1982 Diabetes: Annual Retina Eye Exam 1982 Hepatitis B Vaccines (1 of 3 - 19+ 3-dose series) 11/02/1991 Cervical Cancer Screening: Pap Smear 1993 RSV Immunization Adult Patients (1 - Risk 50-74 years 1-dose series) 2022 Zoster Vaccines (1 of 2) 2022 Cholesterol Screening (Lipid Panel) 03/04/2024 HIV Screening 03/04/2024 Hepatitis C Screening 03/04/2024 Social Influencers of Health Screening 03/04/2024 Depression Screening 08/12/2024 Diabetes: Annual Urine Albumin-Creatinine Ratio (uACR) 02/04/2025 Diabetes: Blood Sugar Control Test (HGBA1C) 02/04/2025 Hypertension/CHF/CAD Annual BMP Blood Test 02/04/2025 COVID-19 Vaccine ( - 2024- season) 2025 12/03/2020, 11/05/2020, 10/10/2020 Influenza Vaccine [...]
== END 2025-05-31 08:25 | disposition home or self-care (01) ==
LOC: HO.XRAY 08:24
PROVIDERS: PCP Nurse Practitioner Family; Visit Provider Nurse Practitioner Family
DX: K21.9 Gastro-esophageal reflux disease without esophagitis (principal); R13.10 Dysphagia, unspecified; R14.0 Abdominal distension (gaseous)
CPT/HCPCS: 74246

== ENCOUNTER → 2025-05-31 08:25 | Outpatient (BNV) | payer BC, SELFPAY | PROVIDERS: PCP Nurse Practitioner Family; Visit Provider Radiology Diagnostic Radiology | DX: K21.9 Gastro-esophageal reflux disease without esophagitis (principal); R07.2 Precordial pain | CPT/HCPCS: 74246 ==

== ENCOUNTER 2025-05-31 16:02 | Outpatient (AMB) | payer BC, SELFPAY ==
--- NOTE | 2025-05-31 16:08 | MHC.OFFVIS ---
Vital Signs 05/31/25 16:12 Height 5 ft 5 in Weight 200 lb BMI 33.3 BP 120/70 Blood Pressure Location Rt brachial Position Sitting Pulse 88 Pulse Source Pulse Oximeter Pulse Oximetry (%) 98 Oxygen Delivery Method Room Air Intake Visit Reasons: gerd Intake Note: EST PATIENT for mgmt of GERD + dysphagia. Chief Complaint; C.O. GERD persistence despite current therapies. Pt states that she was not aware that she could be taking famotidine with the esomeprazole. States that the esomeprazole unfortunately has not provided much control of her sx regardless. Pt also wishes to review results of imaging from this morning. News Content Specialist Required: No Accompanied by: Self / Same As Patient Allergies No Known Allergies (No Known Allergies*) Allergy (Unverified 02/03/25 08:02) HPI HPI gerd: Details: LAST VISIT GERD (gastroesophageal reflux disease) Dysphagia Nausea & vomiting Postprandial abdominal bloating Plan Will start patient on esomeprazole in the morning and famotidine at bedtime. Will send for upper GI with barium swallow. Patient reports dysphagia, rule out achalasia, Schatzki ring, esophageal stricture. Patient reports epigastric pain will rule out H pylori. Patient reports occasional constipation will continue to take magnesium every evening if it helps. Increase fluid intake and activity to promote better bowel motility. Return in 4 months, sooner on as needed basis. Patient is agreeable to this plan and verbalizes understanding of instructions. She was given the opportunity to ask questions and all questions answered. ? Thank you for allowing me to participate in her care Orders [place] upper GI w Ba Swallow Today K21.9 H pylori Ag Stool Today K21.9 Hemoglobin A1c Today Z83.3 Vitamin B12 and Folate Today R19.7 Vitamin D 25-OH (D2 and D3) Today E55.9 New esomeprazole magnesium (Nexium) 40 mg PO DAILY 30 caps 3RF K21.9 famotidine (Pepcid) 20 mg PO BEDTIME 30 tabs 3RF K21.9 TODAY'S VISIT Patient is here today for follow-up. Patient had upper GI series done this morning. Patient continues to have epigastric pain despite taking Nexium. She has never started taking famotidine. Patient reports that her symptoms are worse at nighttime. Patient reports that she is moving her bowels without any issues. Upper GI series results discussed with patient. No reflux seen during the study, however possible gastritis. Patient reports occasional dyspepsia without dysphagia or odynophagia. Patient denies any other GI concerning symptoms. [facility] Medical History Vitamin D deficiency Type 2 diabetes mellitus Morbid obesity Palpitations Hypothyroid HTN (hypertension) Hiatal hernia Graves disease Fibromyalgia Dyslipidemia Chronic GERD Asthma Arthritis Physical Exam Vital Signs: Last Vital Signs Pulse 88 05/31/25 16:12 BP 120/70 05/31/25 16:12 Pulse Ox 98 05/31/25 16:12 Oxygen Delivery Method Room Air 05/31/25 16:12 BMI result Body Mass Index 33.3 Results Reviewed Results Reviewed: UPPER GI WITH BARIUM SWALLOW 05/31/2025 IMPRESSION: Crees gastric secretions. No gastroesophageal reflux or hiatal hernia seen. The esophagus is unremarkable. Assessment & Plan Assessment & Plan (1) Gastroesophageal reflux disease: Code(s): K21.9 - Gastro-esophageal reflux disease without esophagitis Qualifiers: Esophagitis presence: esophagitis presence not specified Qualified Code(s): K21.9 - Gastro-esophageal reflux disease without esophagitis (2) Dysphagia: Code(s): R13.10 - Dysphagia, unspecified Qualifiers: Dysphagia type: unspecified Qualified Code(s): R13.10 - Dysphagia, unspecified (3) Postprandial abdominal bloating: Code(s): R14.0 - Abdominal distension (gaseous) Plan Patient will be sent for endoscopy to evaluate for gastritis, duodenitis, esophagitis, gastric or peptic ulcer, H pylori, Lan's. Patient will start taking lansoprazole in the morning. May take famotidine at bedtime. Discussed with patient avoiding dietary triggers in late night snacking. Staying upright for minimum 3 hours after meals discussed with patient. I will see patient after the procedure, sooner on as needed basis. She is agreeable to this plan and verbalizes understanding of instructions. She was given the opportunity to ask questions and all questions answered. Thank you for allowing me to participate in her care Orders: Referrals GI Procedure Notification Z12.11 - Encounter for screening for malignant neoplasm of colon Medications: New lansoprazole 30 mg PO DAILY 30 caps 3RF K21.9 - Gastro-esophageal reflux disease without esophagitis Discontinued esomeprazole magnesium Discontinued Reason: Doctor's Order 40 mg PO DAILY 30 caps 3RF K21.9 - Gastro-esophageal reflux disease without esophagitis Coding Level of Care Code Est Pt Level 4 (29384) Diagnoses Gastroesophageal reflux disease, unspecified whether esophagitis present K21.9 Esophagitis presence: esophagitis presence not specified Dysphagia, unspecified type R13.10 Dysphagia type: unspecified Postprandial abdominal bloating R14.0 Time Spent (min) 40 Comment 25 minutes spent with patient and additional 15 minutes spent reviewing her records
[2025-05-31 16:12] VITALS: BP 120/70; PULSE 88; O2SAT 98; BMI 33.3
--- OUTSIDE RECORDS SUMMARY | 2025-05-31 20:21 | XMS_ITS | Clinical Summary ---
Author Organization [employer] [facility] ity Address [address] [place] [address] Care Team Providers Care Services Engineer Name Role Phone Unavailable Primary Care Provider [...]
--- OUTSIDE RECORDS SUMMARY | 2025-05-31 20:21 | XMS_ITS | Data Portability ---
Author Organization [place] [facility] Address [address] [address] Care Team Providers Care Director Of Midwifery/Staff Midwife Name Role Phone FRANCISCO J OCHOA Primary [...] to read at home, which gives a [id number] discussion on what causes migraine and how [...] be a significant trigger for migraine phenomena. [email or web address] Not available 06/04/2024 16:01:00 Plan of Treatment [...] audio gram No observ ation record ed. [email or web address] Not Available 05/13 11:41:25 Result Notes None recorded. Problems Name Problem SNOMED Code Status Onset Date Resolution Date Notes Provider Name and Address Organization Details Recorded Time Refracto ry migraine 422217081 Active 2021 Other migraine , intracta ble, without status migraino joe; Note: Date Diagnose d: 2 2:41 PM (G43.819 ) Not Available [facility] 4 02:18:29 Benign paroxysm al position al vertigo 610161862 Completed 202103/13/2024 Benign paroxysm al vertigo, unspecif ied ear; Note: Date Diagnose d: 2 2:43 PM (H81.10) Not Available [facility] 4 02:18:53 Vertigo of central origin 23817290 Active 2021 Vertigo of central origin; Note: Date Diagnose d: 2 2:41 PM (H81.4) Not Available [facility] 4 02:19:11 Sensorin eural hearing loss of bilatera l ears 165634435 Active 2021 Sensorin eural hearing loss, bilatera l; Note: Date Diagnose d: 2 2:42 PM (H90.3) Not Available [facility] 4 02:18:19 Snoring 36421171 Active 2023 JENNY MORENO MD [address] [place] [address],[place] [address], [facility] [place], [address] , [facility] 16:01:05 Obesity 876681178 Active 2023 JENNY MORENO MD [address] [place] [address],[place] [address], [place], [address] , [facility] 4 16:01:10 Type 2 diabetes mellitus 62725616 Active 2023 JENNY MORENO MD [address] [place] [address],[place] [address], [place], [address] , [facility] 16:03:27 Problem Notes None recorded. Procedures Surgical History Date Name Laterality Status Provider Name and Address Organization Details Recorded Time 06/04/2024 Comp Audio with Tymps - 86259 & 43135 completed NGOC REDDY MA, CCC-A [address] [place] [address],[place] [address], [place], [address], [facility] 06/04/2024 15:16:55 Imaging Results None recorded. Procedure Notes None recorded. Medical Equipment None Reported. Allergies No known drug allergies Medications Name Sig Start Date Stop Date Status Note LastModified by Organization Details LastModified Time cyclobenz aprine 10 mg tablet 06/04 completed Medicati on ID: [id number] B rand Name: luis moon Send Method: [...] mg tablet 06/04 completed Medicati on ID: [id number] B rand Name: meclizin e Send Method: E-Prescr ibed Sub s Allowed: subs OK Medic ationGen ericName : meclizin e Not Available Not Available Not Available pantopraz ole 40 mg tablet,de layed release active Medicati on ID: [id number] B rand Name: pantopra zole Sen d Method: E-Prescr ibed Sub s Allowed: subs OK Medic ationGen ericName : pantopra zole Not Available Not Available Not Available losartan 25 mg tablet 06/04 completed Medicati on ID: [id number] B rand Name: losartan Send Method: E-Prescr [...] 24 hr 06/04 completed Medicati on ID: [id number] B rand Name: metformi n Send Method: E-Prescr ibed Sub s Allowed: subs OK Medic ationGen ericName : metformi n Not Available Not Available Not Available naproxen 500 mg tablet 06/04 completed Medicati on ID: [id number] B rand Name: naproxen Send Method: E-Prescr ibed Sub s Allowed: subs OK Medic ationGen ericName : naproxen Not Available Not Available Not Available metoprolo l tartrate 25 mg tablet TAKE 1/2 TABLET BY MOUTH TWICE A DAY 06/04 completed Not Available Not Available Not Available topiramat e 50 mg tablet 06/04 completed Medicati on ID: [id number] B rand Name: topirama te Send Method: [...] Updated DateTime 06/04/2024 165.1 cm 35.1 kg/m2 89327.99 g Celeste Osuna [place] - [facility] 06/04/2024 14:50:24 Social History None recorded. Functional Status None recorded. Mental Status None recorded. Family History Nothing Reported. Medical History Condition Response Diabetes Y Allergies/Hayfever Y Anxiety Y High Cholesterol Y GERD/Reflux Y Migraines Y Fibromyalgia Y Thyroid Problems Y Hypertension Y Gynecological HistoryNo gynecological history recorded. Obstetrics History GPAL:G 0 P 0 0 0 0 Past Encounters Encounter ID Performer Location Encounter Start Date Encounter Closed Date Diagnosis/Indication Diagnosis SNOMED-CT Code Diagnosis ICD10 Code Diagnosis IMO Codes Diagnosis Note [id number] JENNY MORENO MD [facility] [address] [address] 06/04/2024 14:17:14 06/04/2024 15:09:28 Refractory migraine 448550102 G43.819 Vertigo of central origin 82025824 H81.4 Sensorineu ral hearing loss of bilateral ears 857818654 H90.3 Audiologic al evaluation results: Right ear: Normal hearing with a mild SNHL at 2, 3, and 8kHz with excellent word recognitio n. Left ear: Normal hearing with mild SNHL at 2 & 3 kHz with excellent word recognitio n. Tympanomet ry: Right Ear:Type A Left Ear:Type A Snoring 85256079 R06.83 Obesity 921176426 E66.9 Type 2 kathrin betes mellitus 23075532 E11.9 Health Concerns Section Related Observation LastModified by Organization Detai ls LastModified Time None Recorded Concern Status LastModified by Organization Details LastModified Time None Recorded Advance Directives Directive None Recorded Payers Insurance Date Sequence Insurance Name Policy Number Policy Banks Covered Member ID Banks Member ID Guarantor Name 06/04/2024 1 KAVEHFL (O) [id number] Eliana Rendon [id number] Eliana Rendon 06/10/2024 1 KAVEHMA: [facility] [id number] Eliana Rendon [id number] Eliana Rendon Notes Date Note Type [...] vestibular therapy and underwent Obey maneuvers through [facility] physical therapy. This succeeded in eliminating the positionally induced vertigo. Unfortunate, she continues to have a chronic fogginess sensation, chronic lightheadedness, motion intolerance. She has chronic daily headache every single day, accompanied by phonophobia, photophobia. She saw Dr. Topete in neurology at [place] who sent her for MRI scan which [...] Patient has recently followed up with the [facility] neurology group. She continues to have [...] Ozempic for weight loss. JENNY MORENO MD [address] [place] [address], [phone], [facility] - [facility] 06/04/2024 16:03:58 OBGyn Episode No OBEpisode recorded.
== END 2025-05-31 18:39 | disposition home or self-care (01) ==
LOC: HO.HGI 16:03
PROVIDERS: PCP Nurse Practitioner Family; Visit Provider Nurse Practitioner Family
DX: K21.9 Gastro-esophageal reflux disease without esophagitis (principal); R13.10 Dysphagia, unspecified; R14.0 Abdominal distension (gaseous)
CPT/HCPCS: 99214